=== PATIENT | male | born 1995 | race Caucasian/White ===

== ENCOUNTER 2019-10-08 02:17 | Emergency (ER) | payer SELFPAY ==
[2019-10-08 02:57] LABS: ABSOLUTE EOSINOPHILS # (AUTO) 0.4 10^3/uL (0.0-0.6); ABSOLUTE LYMPHOCYTES (AUTO) 2.1 10^3/uL (0.5-4.7); ABSOLUTE MONOCYTES (AUTO) 0.5 10^3/uL (0.1-1.4); ABSOLUTE NEUT (AUTO) 4.1 10^3/uL (1.7-8.2); BASOPHILS % (AUTO) 0.6 % (0-2); EOSINOPHILS % (AUTO) 5.8 % (0-6); HEMOGLOBIN 15.6 g/dL (13.5-17.0); LYMPHOCYTES % (AUTO) 29.6 % (13-45); MEAN CORPUSCULAR HEMOGLOBIN 31.9 pg (27.0-33.4); MEAN CORPUSCULAR HGB CONC 35.4 g/dL (32.0-36.0); MEAN CORPUSCULAR VOLUME 90 fl (80-97); MONOCYTES % (AUTO) 6.4 % (3-13); PLATELET COUNT 314 10^3/uL (150-450); RED BLOOD COUNT 4.88 10^6/uL (4.35-5.55); RED CELL DISTRIBUTION WIDTH 12.8 % (11.5-14.0); SEGMENTED NEUTROPHILS % (AUTO) 57.6 % (42-78); TOTAL CELLS COUNTED % (AUTO) 100 %; WHITE BLOOD COUNT 7.1 10^3/uL (4.0-10.5)
[2019-10-08 03:06] LABS: ALBUMIN 4.8 g/dL (3.5-5.0); ALCOHOL 272 mg/dL (NONE DETECTED); ALKALINE PHOSPHATASE 73 U/L (38-126); ANION GAP 13 (5-19); ASPARTATE AMINO TRANSFERASE 24 U/L (17-59); BILIRUBIN,TOTAL 0.4 mg/dL (0.2-1.3); BLOOD UREA NITROGEN 8 mg/dL (7-20); CALCIUM 9.1 mg/dL (8.4-10.2); CARBON DIOXIDE 22 mmol/L (22-30); CHLORIDE 110 mmol/L (98-107); GLUCOSE 97 mg/dL (75-110); POTASSIUM 4.1 mmol/L (3.6-5.0); TOTAL PROTEIN 7.9 g/dL (6.3-8.2)
[2019-10-08 03:08] LABS: ACETAMINOPHEN < 10 ug/mL (10-30); SALICYLATE < 1.0 mg/dL (2.0-20.0)
[2019-10-08] MEDS ORDERED: MIDAZOLAM 2 MG/2 ML INJ IM ONE (03:30)
--- NOTE | 2019-10-08 03:44 | ER Document Report ---
ED General - General Mode of Arrival: Medic Information source: Patient, Emergency Med Personnel <FLORIN MULLIGAN - Last Filed: 10/08/19 07:14> <DEXTER SAMANIEGO - Last Filed: 10/08/19 15:11> <MIKE ALMARAZ - Last Filed: 10/08/19 15:18> - General Chief Complaint: Overdose Stated Complaint: POSSIBLE OVERDOSE Time Seen by Provider: 10/08/19 02:39 Primary Care Provider: [facility] [Outside] - Follow up in 3-5 days (Can walk in Sunday-Sunday 8:00AM-12:00PM) [facility] [Outside] - Follow up as needed [facility] [Outside] - 10/08/19 (Can walk in Sunday-Sunday 8:00AM- 4:30PM) [facility] [Outside] - Follow up as needed Notes: Patient presents the emergency department after overdosing on an unknown substance. EMS reports they were called to a residence in [place] for an unresponsive male. On arrival he was pale/bustos, had a white powder substance on his nose and had a respiratory rate between 3 and 4 breaths/min. He required life-saving interventions and was given both intranasal and intravenous Narcan. At time of arrival patient is tearful, stating that he could have tonight. He denies the use of any drugs other than marijuana. Patient reports he only had a few drinks tonight. He reports history of depression, states he does not take any medications for this. He keeps asking where he is and why he is here. Patient denies any recollection of tonights events. (FLORIN MULLIGAN) - Related Data Allergies/Adverse Reactions: No Known Allergies Allergy (Unverified 10/08/19 02:22) Past Medical History - General Information source: Patient, Emergency Med Personnel - Social History Smoking Status: Current Every Day Smoker Frequency of alcohol use: None Drug Abuse: Marijuana Family History: Other - Unable to obtain Patient has homicidal ideation: No Psychiatric Medical History: Reports: Hx Depression Surgical Hx: Negative <FLORIN MULLIGAN - Last Filed: 10/08/19 07:14> Review of Systems - Review of Systems -: Yes ROS unobtainable due to patient's medical condition <FLORIN MULLIGAN - Last Filed: 10/08/19 07:14> Physical Exam <FLORIN MULLIGAN - Last Filed: 10/08/19 07:14> - Vital signs Vitals: Resp Pulse Ox 13 96 10/08/19 02:19 10/08/19 02:19 - Notes Notes: PHYSICAL EXAMINATION: GENERAL: Disheveled, strong smell of EtOH. HEAD: Atraumatic, normocephalic. EYES: Pupils equal round and reactive to light, extraocular movements intact, sclera anicteric, conjunctiva are normal. ENT: Nares patent, oropharynx clear without exudates. Moist mucous membranes. NECK: Normal range of motion, supple without lymphadenopathy LUNGS: Breath sounds clear to auscultation bilaterally and equal. No wheezes rales or rhonchi. HEART: Regular rate and rhythm without murmurs ABDOMEN: Soft, nontender, nondistended abdomen. No guarding, no rebound. No masses appreciated. Musculoskeletal: Normal range of motion, no pitting or edema. No cyanosis. NEUROLOGICAL: Cranial nerves grossly intact. Slurred speech. PSYCH: Tearful, agitated. SKIN: Warm, Dry, normal turgor, no rashes or lesions noted. (FLORIN MULLIGAN) Course - Laboratory Result Diagrams: 10/08/19 02:45 10/08/19 02:45 <FLORIN MULLIGAN - Last Filed: 10/08/19 07:14> - Laboratory Result Diagrams: 10/08/19 02:45 10/08/19 02:45 <DEXTER SAMANIEGO - Last Filed: 10/08/19 15:11> - Laboratory Result Diagrams: 10/08/19 02:45 10/08/19 02:45 <MIKE ALMARAZ - Last Filed: 10/08/19 15:18> - Re-evaluation Re-evalutation: 10/08/19 03:43 Patient placed on IVC petition as patient is obviously acutely intoxicated and possibly under the influence of an unknown substance. He is unable to make decisions for himself at this time. He is tearful, labile and has no sober person present. There is also report from the nurse out front that there are a few friends out there who appear to be intoxicated who are trying to get him to leave the hospital. At this time he is a risk to himself as he is trying to leave the emergency department and again has no one here who is able to safely get him home. 10/08/19 07:14 I was called to the bedside as the patient vomited what appeared to be coffee- ground emesis. I did test this on a Gastroccult card and it was positive. There did not appear to be a lot of blood vomited. Will give patient a dose of Protonix as well as some IV fluids. Type and screen pending. We will continue to monitor. (FLORIN MULLIGAN) 10/08/19 08:30 report received on patient, awaiting psychiatric evaluation 10/08/19 08:45 I spoke with the patient at length. His respiratory rate is 12. He is verbalizing without any dyspnea or difficulty. He denies suicidal or homicidal ideation. Patient states that he only drank beer and smoked marijuana yesterday he denies any other drug use history. His drug screen only came back positive for marijuana. Patient denies use of any synthetics. Patient has had 2 episodes of vomiting this morning after drinking water. Patient is requesting ester saumya. He has no abdominal pain on palpation. We will plan to reassess patient's nausea vomiting issue as he was Hemoccult positive, perhaps a small tear when vomiting. Patient is requesting to drink, will give him ester saumya as this is clear he was instructed not to jog but to sip. If he continues to have vomiting will make patient n.p.o. Will consider NG tube 10/08/19 09:28 Patient had another episode of vomiting there is no visible blood or coffee- ground emesis at this time. Will give patient Reglan 10/08/19 10:09 Patient is still vomiting. He was noticed drinking water from the faucet tap. Despite being told he was to not have anything by mouth. I am going to give patient Haldol for nausea, this may be cyclic vomiting from marijuana use 10/08/19 15:17 Patient has had no further vomiting. No further bloody emesis. I discussed this at length with the patient he denies any suicidal or homicidal ideation. I did speak with the patient at length about return instructions. Patient verbalizes understanding he is alert and oriented x3. He is keeping oral fluids down. He does not wish to have a prescription for nausea medicine called into the pharmacy for him. We did speak about cyclic vomiting and marijuana use (MIKE ALMARAZ) - Vital Signs Vital signs: Temp Pulse Resp BP Pulse Ox 98.2 F 15 102/74 92 10/08/19 10:21 10/08/19 13:00 10/08/19 13:00 10/08/19 13:00 - Laboratory Laboratory results interpreted by me: 10/08/19 02:45 Chloride 110 H Salicylates < 1.0 L Acetaminophen < 10 L Discharge <FLORIN MULLIGAN - Last Filed: 10/08/19 07:14> <DEXTER SAMANIEGO - Last Filed: 10/08/19 15:11> <MIKE ALMARAZ - Last Filed: 10/08/19 15:18> - Discharge Clinical Impression: Polysubstance abuse, Cannabis abuse Overdose Qualifiers: Encounter type: initial encounter Injury intent: undetermined intent Qualified Code(s): T50.904A - Poisoning by unspecified drugs, medicaments and biological substances, undetermined, initial encounter Alcohol intoxication Qualifiers: Complication of substance-induced condition: with unspecified complication Qualified Code(s): F10.929 - Alcohol use, unspecified with intoxication, unspecified Condition: Stable Disposition: HOME, SELF-CARE Additional Instructions: You have been evaluated by both medical and behavioral health teams for overdose and polysubstance use. You have been deemed appropriate for discharge. While in the emergency department you received the following services: Medical screening and assessment, nursing services, dietary services, pharmacological services, one-on-one counseling and/or psychotherapy, environmental services, and continuous observation by a patient mine safety engineer. You are recommended to follow up with an outpatient Mental Health Provider for therapy and possibly medication management. You are encouraged to consider voluntary detoxification at [facility] located at [address] [place] [address] ([phone]). You should abstain from alcohol and cannabis use as these affect the central nervous system and act as a depressant which could cause and or exacerbate depressive symptoms. Overdose You have taken more medication than you should have. After your evaluation and care, it is felt that your overdose is not likely to be harmful or of any significant consequences to you and you are being discharged. In the future, you should be careful not to take more medications than what is prescribed for you. Although your overdose does not seem to be of any danger to you at this time, if you develop any unusual or unexpected symptoms after your discharge, you should return to the Emergency Department immediately for re-evaluation. ACUTE ALCOHOL INTOXICATION and ALCOHOL ABUSE: Your evaluation revealed very high levels of alcohol. You can from drinking a large amount of alcohol rapidly! Further, there's the risk of falls, traffic accidents, and fights. A high portion (about 50 percent) of the serious injuries seen in hospital emergency rooms are caused by alcohol. Alcohol overdosage is usually due to an underlying emotional or psychiatric problem. You may benefit from counselling. If "binge" drinking is an ongoing problem for you, or if you drink ANY AMOUNT of alcohol EVERY day, you most likely have a tendency to alcoholism. You should avoid alcohol totally. We can refer you for treatment. Persons with alcohol problems are often also prone to other addictions -- you should discuss any use of medications or drugs with the doctor. You should be watched at home for the next several hours by someone who has not been drinking. Get extra fluids for the next 24 hours. Call the doctor if there is repeated vomiting, increasing headache, decreasing level of alertness, or any other worsening. CHRONIC ALCOHOLISM and ALCOHOL ABUSE: (if you drink excessively over a prolonged period of time, if you crave alcohol/experience withdrawal symptoms without it) Your evaluation reveals evidence of chronic alcoholism, an addiction to alcohol. The tendency to alcoholism may be inherited. Chronic use of alcohol weakens muscles, causes fatty deposits in the liver, damages the stomach, makes you more prone to infections, and can cause defects in unborn children. In the long run, brain atrophy and cirrhosis of the liver result. You are also at greater risk for certain types of cancer, such as cancer of the mouth, throat, stomach, and liver. Counselling services are available to help you. In-hospital treatment programs often help. Support groups such as Alcoholics Anonymous can be very useful in beating this addiction. Your physician can make a referral for you. As alcoholics often are prone to other addictions, you should discuss your use of any other medications with the doctor. ALCOHOL WITHDRAWAL: (if your drink excessively and abruptly stop there is concern for this, alcohol withdrawal requires medical detox which is what [facility] can assist with) Your symptoms are caused by alcohol withdrawal. After a period of frequent drinking, the brain and body are changed by the alcohol. When you quit or reduce your drinking, the nervous system becomes unstable. Withdrawal symptoms can start a few hours after your last drink, but sometimes don't begin until a couple of days later. Symptoms can include shakiness, sweating, insomnia, nausea, vomiting, fearfulness, hallucinations, and seizures. In addition to the acute effects of alcohol withdrawal, we often have to deal with the medical effects of alcoholism. These problems often include dehydration, stomach irritation, intestinal bleeding, low blood sugar, liver disease, and pancreas inflammation. Treatment for alcohol withdrawal includes mild sedatives, vitamins, and fluids. You need to be with someone who can help if symptoms become severe. Many patients can withdraw at home. Admission to the hospital or a detox facility may be necessary if withdrawal symptoms are severe and uncontrollable. Abstaining from alcohol is the only effective long-term treatment. If you start drinking again, you will not be able to control yourself after the first drink. Treatment programs are available. In addition, many alcoholics benefit from Alcoholics Anonymous or other support groups available through your coun selor or advent golf club head inspector. [facility] and [facility] are support groups for friends and family members of an alcoholic. Go to the emergency room if you develop persistent vomiting, severe abdominal pain, fever, shortness of breath, hallucinations, uncontrollable tremors, or seizures. FOLLOW-UP CARE: You are recommended to follow up with an outpatient mental health provider for therapy and possibly medication management. You have been provided the mental health resource sheet which highlighted both mobile crisis numbers, and documented both [facility] and [facility] local agencies with walk in times, as well as [facility] for voluntary detoxification. If you experience worsening or a significant change in your symptoms notify your physician immediately, return to the Emergency Department at any time for re-evaluation or utilize mobile crisis. Referrals: [facility] [Outside] - Follow up as needed [facility] [Outside] - Follow up as needed [facility] [Outside] - Follow up in 3-5 days (Can walk in Sunday-Sunday 8:00AM-12:00PM) [facility] [Outside] - 10/08/19 (Can walk in Sunday-Sunday 8:00AM- 4:30PM)
[2019-10-08 03:46] LABS: ADD MANUAL MICROSCOPIC YES; APPEARANCE,URINE CLEAR; BILIRUBIN,URINE NEGATIVE (NEGATIVE); COLOR,URINE STRAW; GLUCOSE, URINE NEGATIVE (NEGATIVE); KETONES,URINE NEGATIVE (NEGATIVE); LEUKOCYTE ESTERASE,URINE NEGATIVE (NEGATIVE); NITRITE,URINE NEGATIVE (NEGATIVE); PROTEIN,URINE NEGATIVE (NEGATIVE); URINE SPECIFIC GRAVITY 1.006; UROBILINOGEN,URINE NEGATIVE mg/dL (<2.0)
[2019-10-08 03:47] LABS: RBC,URINE NONE SEEN /HPF; WBC,URINE 0-1 /HPF
[2019-10-08 03:56] LABS: URINE AMPHETAMINES SCREEN NEGATIVE; URINE BARBITURATES SCREEN NEGATIVE; URINE BENZODIAZEPINES SCREEN NEGATIVE; URINE COCAINE SCREEN NEGATIVE; URINE METHADONE SCREEN NEGATIVE; URINE PHENCYCLIDINE SCREEN NEGATIVE
[2019-10-08 04:00] LABS: URINE MARIJUANA (THC) SCREEN UNCONFIRMED POSITIVE
[2019-10-08] MEDS ORDERED: NORMAL SALINE 1000 ML 1,000 ML IV ONE (06:01)
[2019-10-08] MEDS ORDERED: ONDANSETRON HCL INJ/PF 4 MG/2 ML SDV IV ONE (06:48)
[2019-10-08] MEDS ORDERED: ONDANSETRON 4 MG TAB.RAPDIS PO ONE (06:49)
[2019-10-08] MEDS ORDERED: PANTOPRAZOLE SODIUM 40 MG VIAL IV ONE (07:13)
--- NOTE | 2019-10-08 08:34 | EKG REPORT ---
SEVERITY:- NORMAL ECG - SINUS RHYTHM : Confirmed by: Carlyle Rodriguez 08-Oct-2019 08:33:10
[2019-10-08] MEDS ORDERED: METOCLOPRAMIDE HCL INJ/PF 10 MG/2 ML SDV IV ONE (09:26)
[2019-10-08] MEDS ORDERED: HALOPERIDOL LACTATE INJ 5 MG/1 ML VIAL IV ONE (10:09)
[2019-10-08 15:52] VITALS: BP 104/72
--- NOTE | 2019-10-08 20:49 | PSYCHOLOGICAL NOTE ---
Psych Note - Psych Note Date seen by psych provider: 10/08/19 Time seen by psych provider: 12:58 - [id number]. Psych Note: Presenting Problem: Patient is a 24 year old male who presented to the [facility] ED cross tie maker hours via EMS for overdose. He was found unresponsive with a white powder under his nose and required both Intranasal and Intramuscular administration of Narcan to revive. Serum Alcohol level was 272 upon arrival to the ED and UDS positive for Cannabis. He was put on a 24 Hour Petition for Evaluation. Patient was sleeping and startled when this clinician woke him up. He quickly became alert and oriented. He stated he was good and not sure what happened. He commented "it took a toll on me I am exhausted." When asked what he remembered he said "I was hanging out last night, I guess I started to get sick, I don't know what I ingested, I don't cameron dabble in drugs, I mean I do smoke some weed and drink but that's all." He admitted he had been drinking beer last night, was told his alcohol level, and said he did not think he drank that much. He denied SI/HI. He denied any problem with alcohol or wanting any linkage or treatment. When asked if he needed anything he said "I am so thirsty I would love a Lisbeth Maya." Patient identified he has a history of depression. He denied ever being on medication. He acknowledged he would talk with a therapist "every now and then, not regular." He commented "drinking like that is not typical." He said his depression and alcohol were separate. Patient was alert and oriented to self, person, place, time and situation. Mood was depressed with flat affect but may be due to sobering up. He denied current SI/HI and these were never presenting concerns. Patient did not appear to be responding to internal stimuli as evidenced by fair eye contact and answering questions appropriately when addressed. Conversational speech was within normal limits for rate, tone and prosody. Thought processes were linear. Intellectual abilities are estimated to be average. Insight, judgment and impulse control were fair as evidenced by processing through what he recalled of the night before. Collateral: Spoke to Attending ED Nurse. She stated patient has been vomiting filling up the blue vomit bags so they removed water and drinks but then [facility]. Interventions: Used open ended questioning to obtain information regarding current crisis situation and past, as well as to get patient to elaborate. Used coming alongside when patient talked about not remembering what happened. Encouraged him to tell what he did recall. Challenged and confronted patient about alcohol level and if he thought he had a problem, as well as the need for Narcan IN and IM when he was found unresponsive. Encouraged him to utilize local agency on MH list for outpatient treatment, at the very least more regular therapy. Diagnosis: Overdose Polysubstance Use Alcohol Intoxication with Use Disorder, Severe Cannabis Use Disorder, Moderate Impression/Plan: Patient is cleared from acute psychiatric services. Recommendation to RESCIND 24 Hour Petition for Evaluation. Patient denied SI/HI and did not appear to be responding to internal stimuli. He admitted to smoking weed and drinking alcohol only. He reported he did not feel he had a problem or needed help. He admitted to history of depression but was adamant the alcohol was not his way to deal with depression. Provided patient with the outpatient MH resource sheet which highlighted both [facility] numbers, documented [facility] walk in times and [facility] contact information was listed in Discharge Paperwork for voluntary Detox. Consulted with Dr. Blue regarding the management and care of patient. ED Physician in agreement with recommendations.
== END 2019-10-08 16:45 | disposition home or self-care (01) ==
LOC: ER 02:17
DX: T50.901A Poisoning by unspecified drugs, medicaments and biological substances, accidental (unintentional), initial encounter (principal); Y92.009 Unspecified place in unspecified non-institutional (private) residence as the place of occurrence of the external cause; F10.129 Alcohol abuse with intoxication, unspecified; F12.10 Cannabis abuse, uncomplicated; K92.0 Hematemesis; F17.200 Nicotine dependence, unspecified, uncomplicated
CPT/HCPCS: 93005; 99285; 96374; 96375; 86900; 86901; 36415; 86850; 80307 ×4; 85025; 80053; 81001; 93010; J2250; S0119; J1630; J2765; C9113